=== PATIENT | male | born 2000 | race Caucasian/White ===

== ENCOUNTER 2021-03-18 05:41 | Inpatient (IN) | payer SELFPAY ==
[2021-03-18] MEDS ORDERED: Acetaminophen 325 MG TAB PO PRN (08:27)
[2021-03-18] MEDS ORDERED: Ondansetron PF 4 MG/2 ML Vial IVP PRN (08:27)
[2021-03-18] MEDS ORDERED: Calcium Carbonate 500 MG ChewTAB PO PRN (08:27)
[2021-03-18] MEDS ORDERED: Senokot S 8.6-50 MG TAB PO PRN (08:27)
[2021-03-18] MEDS ORDERED: Ondansetron ODT 4 MG TAB PO PRN (08:27)
[2021-03-18] MEDS ORDERED: NS 0.9% w/ 20 MEQ KCL 1,000 ML IV SCH (08:30)
[2021-03-18 08:34] VITALS: BMI 41.2
[2021-03-18] MEDS ORDERED: cloNIDine 0.1 MG TAB PO PRN (08:36)
[2021-03-18] MEDS ORDERED: Magnesium 2 GM/50 ML 2 GM in Premix Bag 1 BAG IVPB SCH (09:30)
[2021-03-18] MEDS: Loratadine 10 MG TAB PO SCH (09:52)
[2021-03-18] MEDS: Famotidine 20 MG TAB PO SCH ×2 (09:52→21:04)
[2021-03-18] MEDS ORDERED: Vancomycin HCl 2.5 GM in Sodium Chloride 0.9% 500 ML IVPB SCH (10:00)
[2021-03-18] MEDS ORDERED: FLU VACC QS2021-22(6MOS UP)/PF 60 MCG/0.5 ML SYRINGE IM ONE (10:00)
[2021-03-18] MEDS: NS 0.9% w/ 20 MEQ KCL 1,000 ML IV SCH ×2 (10:54→16:43)
[2021-03-18 15:32] LABS: SARS-CoV-2 PCR by NAA Not Detected (NotDetected)
[2021-03-18] MEDS: cefTRIAXone\\ROCEPHIN 2 GM in Sodium Chloride 0.9% 100 ML IVPB SCH (17:45)
[2021-03-18] MEDS: VANCOMYCIN 2 GRAM/400 ML BAG 2 GM in Premix Bag 1 BAG IVPB SCH (18:26)
[2021-03-19] MEDS: NS 0.9% w/ 20 MEQ KCL 1,000 ML IV SCH ×2 (01:35→10:27)
[2021-03-19] MEDS: VANCOMYCIN 2 GRAM/400 ML BAG 2 GM in Premix Bag 1 BAG IVPB SCH ×2 (01:49→09:07)
[2021-03-19 05:23] LABS: #Eosinphils 0.3 thou/uL (0.0-0.7); #Lymphocytes 0.8 thou/uL (1.20-3.40); #Monocytes 0.7 thou/uL (0.11-0.59); #Neutrophils 3.8 thou/uL (1.40-6.50); %Basophils 0.3 % (0.0-1.0); %Eosinophils 4.6 % (0.0-10.0); %Lymphocytes 13.5 % (21.0-51.0); %Monocytes 13.1 % (0.0-10.0); %Neutrophils 68.4 % (42.0-75.0); Hemoglobin 13.7 g/dL (14.0-18.0); Mean Corpuscular HGB CONC 34.7 g/dL (32.0-36.0); Mean Corpuscular Hemoglobin 30.7 pg (27.0-31.0); Mean Corpuscular Volume 88.7 fL (78.0-98.0); Mean Platelet Volume 6.9 fL (7.4-10.4); Platelet Count 167 thou/uL (130-400); RBC Distribution Width 12.7 % (11.5-14.5); Red Blood Cell (RBC) Count 4.45 mill/uL (4.70-6.10); White Blood Cell (WBC) Count 5.5 thou/uL (4.8-10.8)
[2021-03-19 05:37] LABS: ALT (SGPT) 43 U/L (8-55); AST (SGOT) 33 U/L (5-34); Albumin 3.9 g/dL (3.5-5.0); Alkaline Phosphatase 61 U/L (40-110); Anion Gap 12 mmol/L (10-20); BUN (Urea Nitrogen) 10 mg/dL (8.9-20.6); Bilirubin, Total 1.1 mg/dL (0.2-1.2); Calc. Creatinine Clearance 306 mL/min (70-130); Calcium 8.7 mg/dL (7.8-10.44); Carbon Dioxide 23 mmol/L (22-29); Chloride 104 mmol/L (98-107); Globulin 2.5 g/dL (2.4-3.5); Glucose 101 mg/dL (70-105); Magnesium 1.8 mg/dL (1.6-2.6); Potassium 3.8 mmol/L (3.5-5.1); Protein, Total 6.4 g/dL (6.0-8.3); Sodium 135 mmol/L (136-145)
[2021-03-19 05:42] LABS: Phosphorus 2.9 mg/dL (2.3-4.7)
[2021-03-19] MEDS: cefTRIAXone\\ROCEPHIN 2 GM in Sodium Chloride 0.9% 100 ML IVPB SCH (06:09)
[2021-03-19] MEDS: Loratadine 10 MG TAB PO SCH (09:07)
[2021-03-19] MEDS: Famotidine 20 MG TAB PO SCH (09:07)
[2021-03-19 09:43] LABS: Vancomycin, Trough 13.3 ug/mL
[2021-03-19 12:14] VITALS: BP 139/76; TEMP 98.5
== END 2021-03-19 12:22 | disposition home or self-care (01) | DRG 101 ==
LOC: 2SW 05:41 → OBSVTOIN 08:34
PROVIDERS: ADMIT Internal Medicine; ATTEND Internal Medicine
DX: R56.01 Complex febrile convulsions (principal); Z68.41 Body mass index [BMI] 40.0-44.9, adult; Z20.822 Contact with and (suspected) exposure to COVID-19; L23.7 Allergic contact dermatitis due to plants, except food; E66.01 Morbid (severe) obesity due to excess calories; T38.0X5A Adverse effect of glucocorticoids and synthetic analogues, initial encounter; E83.42 Hypomagnesemia; E87.6 Hypokalemia; F17.290 Nicotine dependence, other tobacco product, uncomplicated; Z86.16 Personal history of COVID-19; Z28.21 Immunization not carried out because of patient refusal
CPT/HCPCS: 36415; 70551; 71046; 80053; 80202; 83735; 84100; 85025; 86140; 95712; 95819; 95957; J0696; J3370; J3475; J3480; J3490; J7030; U0003; U0005